=== PATIENT | male | born 1990 | race Caucasian/White ===

== ENCOUNTER 2016-11-14 19:03 | Emergency (ER) | payer OTHER ==
[2016-11-14 19:12] VITALS: BP 116/75; PULSE 99; TEMP 98.5; BMI 21.8
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
== END 2016-11-14 22:14 | disposition home or self-care (01) ==
LOC: JER 19:03
DX: F07.81 Postconcussional syndrome (principal); S00.12XA Contusion of left eyelid and periocular area, initial encounter; S00.11XA Contusion of right eyelid and periocular area, initial encounter; Y04.2XXA Assault by strike against or bumped into by another person, initial encounter; Y93.89 Activity, other specified; Y92.89 Other specified places as the place of occurrence of the external cause; Y07.9 Unspecified perpetrator of maltreatment and neglect
CPT/HCPCS: 99281-25

== ENCOUNTER 2017-06-30 21:08 | Emergency (ER) | payer OTHER ==
[2017-06-30 21:35] VITALS: TEMP 98.7; BMI 21.2
[2017-06-30] MEDS ORDERED: SODIUM CHLORIDE 0.9% 1000 ML INFUS.BAG IV ONE (22:46)
[2017-06-30] MEDS ORDERED: METOCLOPRAMIDE HCL INJECTION 10 MG/2 ML VIAL IVPB ONE (22:46)
[2017-06-30] MEDS ORDERED: KETOROLAC TROMETHAMINE 30 MG/1 ML VIAL IVPUSH ONE (22:46)
[2017-06-30] MEDS ORDERED: METOCLOPRAMIDE HCL INJECTION 10 MG/2 ML VIAL ONE (22:51)
[2017-06-30] MEDS ORDERED: KETOROLAC TROMETHAMINE 30 MG/1 ML VIAL ONE (22:53)
--- NOTE | 2017-06-30 22:55 | PDOC ---
History of Present Illness - General Chief Complaint: Headache Stated Complaint: MIGRAINE Time Seen by Provider: 06/30/17 22:07 History Source: Patient Exam Limitations: No Limitations - History of Present Illness Initial Comments: 06/30/17 22:48 Patient is a 26-year-old male with no past medical history complaining off headache 5 days. States gradual onset of progressively worsening now 5/10, throbbing to the right parietal area and worse with laying down. States he googled his symptoms and thinks he has a migraine. No history of migraine. Denies nausea, vomiting. States he has mild dizziness, photophobia and phonophobia. He has been taking Tylenol and Motrin intermittently yesterday but [facility] migraine medicines and has been taking it for 2 days with no relief of symptoms. Denies any URI symptoms, nasal congestion in the past few days. 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 No FamHx aneurysm PMD: Dr. Pierce PMHX: as read PSOCHx: (+) cig - 1 PPD, (-) etoh, (-) durg ALL: NKDA GENERAL/CONSTITUTIONAL: [No fever or chills. No weakness. No weight change.] HEAD, EYES, EARS, NOSE AND THROAT: [No change in vision. No ear pain or discharge. No sore throat.] CARDIOVASCULAR: [No chest pain or shortness of breath.] RESPIRATORY: [No cough, wheezing, or hemoptysis.] GASTROINTESTINAL: [No nausea, vomiting, diarrhea or constipation. No rectal bleeding.] GENITOURINARY: [No dysuria, frequency, or change in urination.] MUSCULOSKELETAL: [No joint or muscle swelling or pain. No neck or back pain.] SKIN AND BREASTS: [No rash or easy bruising.] NEUROLOGIC: (+) headache, (-) vertigo, loss of consciousness, or loss of sensation.] PSYCHIATRIC: [No depression or anxiety.] ENDOCRINE: [No increased thirst. No abnormal weight change.] HEMATOLOGIC/LYMPHATIC: [No anemia, easy bleeding, or history of blood clots.] ALLERGIC/IMMUNOLOGIC: [No hives or skin allergy. No latex allergy.] GENERAL: [The patient is awake, alert, and fully oriented, in no acute distress. ] HEAD: [Normal with no signs of trauma.] EYES: [Pupils equal, round and reactive to light, extraocular movements intact, sclera anicteric, conjunctiva clear.] ENT: [Ears normal, nares patent, oropharynx clear without exudates. Moist mucous membranes.] NECK: [Normal range of motion, supple without lymphadenopathy, JVD, or masses.] LUNGS: [Breath sounds equal, clear to auscultation bilaterally. No wheezes, and no crackles.] HEART: [Regular rate and rhythm, normal S1 and S2 without murmur, rub.] ABDOMEN: [Soft, nontender, normoactive bowel sounds. No guarding, no rebound. No masses.] EXTREMITIES: [Normal range of motion, no edema. No clubbing or cyanosis. No cords, erythema, or tenderness.] NEUROLOGICAL: [Cranial nerves II through XII grossly intact. Normal speech, normal gait, cerebellar function intact, 5/5 strength equal bilaterally PSYCH: [Normal mood, normal affect.] SKIN: [Warm, Dry, normal turgor, no rashes or lesions noted.] 07/01/17 00:14 Past History - Past Medical History Allergies/Adverse Reactions: Allergies Allergy/AdvReac Type Severity Reaction Status Date / Time No Known Allergies Allergy Verified 06/30/17 21:31 Home Medications: Ambulatory Orders NK [No Known Home Medication] 11/14/16 COPD: No - Immunization History Immunization Up to Date: Yes - Suicide/Smoking/Psychosocial Hx Smoking History: Current every day smoker Have you smoked in the past 12 months: Yes Number of Cigarettes Smoked Daily: 10 Information on smoking cessation initiated: No 'Breaking Loose' booklet given: 11/14/16 Hx Alcohol Use: No Drug/Substance Use Hx: No Substance Use Type: None *Physical Exam - Vital Signs Last Vital Signs Temp Pulse Resp BP Pulse Ox 98.7 F 78 16 139/90 99 06/30/17 21:33 06/30/17 21:33 06/30/17 21:33 06/30/17 21:33 06/30/17 21:33 Medical Decision Making - Medical Decision Making 07/01/17 00:15 raheem is a 26-year-old male with no past medical history complaining off headache 5 days. States gradual onset of progressively worsening now 5/10, throbbing to the right parietal area and worse with laying down. Reports a lot of tension and stress. Suspect tension headache. will give Reglan and toradol, IVF. 07/01/17 00:16 Patient states was feeling better and then he got up and his pain worsened. will at this point CT head. 07/01/17 01:00 atient Full Name: SON EDWARD Patient Accession No: [id number] Patient : 1990 Reason for Exam: HEADACHES Referring Physician: Patient Name: CHEYANNE CLINE THIS IS A PRELIMINARY REPORT FROM [facility] DATE OF SERVICE: 2017-07-01 00:33:49 IMAGES: 166 EXAM: CT HEAD HISTORY: Headaches COMPARISON: None. FINDINGS: Normal brain. No acute intracranial abnormality. No hemorrhage. No visible infarct or mass. Osseous structures are intact. THIS DOCUMENT HAS BEEN ELECTRONICALLY SIGNED Gustavo Zarate MD 07/01/2017 00:51 EST M.D. Please call [facility] [phone] ([phone]) with questions. INTERPRETING RADIOLOGIST: Gustavo Zarate MD Electronically Signed: Jul 01, 2017 12:53AM ES I discussed the physical exam findings, ancillary test results and final diagnoses with the patient. I answered all of the patient's questions. The patient was satisfied with the care received and felt comfortable with the discharge plan and treatment plan. The Patient agrees to follow up with the primary care physician within 24-72 hours. *DC/Admit/Observation/Transfer Diagnosis at time of Disposition: Headache, tension-type Qualifiers: Headache chronicity pattern: unspecified pattern Intractability: not intractable Qualified Code(s): G44.209 - Tension-type headache, unspecified, not intractable - Discharge Dispostion Disposition: HOME Condition at time of disposition: Stable - Referrals Referrals: Gustavo Lehman MD [Staff Physician] - - Patient Instructions Printed Discharge Instructions: DI for Headache Additional Instructions: Your Discharge Instructions: You must call primary care physician within 24 hours to arrange follow-up. Return to the Emergency Department with any new, persistent or worsening symptoms, for fever, chills, SOB, dizziness or any other concerning changes that may occur. He must follow-up with neurology, call for an appointment 1-2 days - Post Discharge Activity
[2017-07-01 01:23] VITALS: BP 151/82; PULSE 83
== END 2017-07-01 01:40 | disposition home or self-care (01) ==
LOC: JER 21:08
DX: G44.209 Tension-type headache, unspecified, not intractable (principal)
CPT/HCPCS: 70450-TC; 99283-25

== ENCOUNTER 2017-12-13 18:03 | Emergency (ER) | payer OTHER ==
--- NOTE | 2017-12-13 18:08 | PDOC ---
Rapid Medical Evaluation Time Seen by Provider: 12/13/17 18:05 Medical Evaluation: Allergies Allergy/AdvReac Type Severity Reaction Status Date / Time No Known Allergies Allergy Verified 06/30/17 21:31 I have performed a brief in-person evaluation of this patient. The patient presents with a chief complaint of: poison [place] x 2 weeks. hasn't gone away Pertinent physical exam findings: scabs on left arm I have ordered the following: nothing The patient will proceed to the ED for further evaluation. Discharge Disposition - Diagnosis Poison [place] - Referrals - Patient Instructions - Post Discharge Activity
[2017-12-13 18:11] VITALS: BP 136/80; PULSE 80; TEMP 98.3; BMI 22.4
--- NOTE | 2017-12-13 18:38 | PDOC ---
History of Present Illness - General Chief Complaint: Rash Stated Complaint: POISON LOV[place] Time Seen by Provider: 12/13/17 18:05 History Source: Patient - History of Present Illness Timing/Duration: reports: other Location: reports: extremities, torso Past History - Past Medical History Allergies/Adverse Reactions: Allergies Allergy/AdvReac Type Severity Reaction Status Date / Time No Known Allergies Allergy Verified 12/13/17 18:08 Home Medications: Ambulatory Orders Clobetasol Prop 0.05% Top Cr [Temovate (Nf)] 30 gm NR BID #1 tube 12/13/17 COPD: No - Immunization History Immunization Up to Date: Yes - Suicide/Smoking/Psychosocial Hx Smoking History: Current every day smoker Have you smoked in the past 12 months: Yes Number of Cigarettes Smoked Daily: 10 Information on smoking cessation initiated: Yes 'Breaking Loose' booklet given: 11/14/16 Hx Alcohol Use: No Drug/Substance Use Hx: No Substance Use Type: None Review of Systems - Review of Systems Constitutional: No: Chills, Fever Integumentary: Yes: Pruritus, Rash *Physical Exam - Vital Signs Last Vital Signs Temp Pulse Resp BP Pulse Ox 98.3 F 80 16 136/80 98 12/13/17 18:05 12/13/17 18:05 12/13/17 18:05 12/13/17 18:05 12/13/17 18:05 - Physical Exam General Appearance: Yes: Appropriately Dressed. No: Apparent Distress HEENT: positive: Normal Voice Neck: positive: Supple Respiratory/Chest: negative: Respiratory Distress Integumentary: positive: Dry, Warm Neurologic: positive: Fully Oriented, Alert, Normal Mood/Affect (multiple areas of streak-like/linear areas of edema and erythema to trunl and upper/lower exts , no blisters) Medical Decision Making - Medical Decision Making 12/13/17 18:38 27-year-old male denies any past medical history, presents with pruritic rash to chest, upper and lower extremity that has been present 2 weeks, but getting better. Patient states he was exposed to poison [place] 2 weeks ago while working in the backyard of his friend's house. States he did not seek medical evaluation and instead use an [id number] cream that he states is made specifically for poison lovely. States rash has significantly improved, but continues to have some itching. Patient well-appearing and stable areas of streak-like edema and erythema to trunk and upper and lower extremities consistent with poison lovely dermatitis. DC with steroid cream, though unclear benefit given duration of rash. Reasons to follow-up with dermatology discussed with patient. Patient to wash clothing worn since rash. *DC/Admit/Observation/Transfer Diagnosis at time of Disposition: Poison lovely - Discharge Dispostion Disposition: HOME Condition at time of disposition: Good - Prescriptions Prescriptions: Clobetasol Prop 0.05% Top Cr [Temovate (Nf)] 30 gm NR BID #1 tube - Referrals Referrals: ON STAFF,NOT [Primary Care Provider] - Debra Sinclair MD [Staff Physician] - - Patient Instructions Printed Discharge Instructions: Poison [place], Poison [place], Poison [place] Additional Instructions: Used steroids as directed. Please wash clothing worn since contact with poison lovely. If symptoms persist, please follow-up with Dr. Sinclair of dermatology - Post Discharge Activity
== END 2017-12-13 19:01 | disposition home or self-care (01) ==
LOC: JER 18:03 → JERFT 18:03
DX: L23.7 Allergic contact dermatitis due to plants, except food (principal)
CPT/HCPCS: 99281-25